=== PATIENT | male | born 1950 | race Caucasian/White ===

== ENCOUNTER 2016-12-31 14:40 | Emergency (ER) | payer MEDICARE, OTHER ==
[2016-12-31] MEDS ORDERED: Sodium Chloride 0.9% 10 ML Syringe FLUSH PRN (15:20)
[2016-12-31] MEDS ORDERED: Acetaminophen 325 MG Tab PO ONE (15:21)
--- NOTE | 2016-12-31 15:22 | EDM.PDOC ---
ED HPI GENERAL MEDICAL PROBLEM - General Chief Complaint: Back Pain or Injury Stated Complaint: BACK PAIN Time Seen by Provider: 12/31/16 15:10 Source of Information: Reports: Patient, RN notes reviewed History Limitations: Reports: No limitations - History of Present Illness INITIAL COMMENTS - FREE TEXT/NARRATIVE: 66 year old male presents to the ED with 3 day history of right back pain. The pain is described as constant, cramping, and severe 10/10. The pain came on suddenly. He denies fall, back injury, or heavy lifting. He was putting his shoes on when the pain started. He says the pain is so severe that it's hard to walk sometimes. The pain does not radiate into groin or down his leg. No hematuria that he's noticed. No history of kidney stones. No history of back problems. He denies abdominal pain, nausea, vomiting, diarrhea, or constipation. He says his abdomen feels bloated but this is not abnormal for him. No fever or chills. He has take excedrin which has offered minimal relief in pain. He drove himself here today and does not have a ride home. He has a history of diabetes and hypertension. 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: Other (see below) Other Treatments INSURANCE SALES SPECIALIST: excedrin at 1200, 1500 mg taken lower back, right hip Pain Score (Numeric/FACES): 10 - Related Data Allergies Allergy/AdvReac Type Severity Reaction Status Date / Time No Known Allergies Allergy Verified 12/31/16 14:57 Home Meds: Home Meds Aspirin 1 tab PO DAILY 07/24/16 [History] Carvedilol 1 tab PO BID 07/24/16 [History] Ferrous Sulfate [Slow Fe] 65 mg PO DAILY 07/24/16 [History] Glimepiride [Amaryl] 4 mg PO DAILY 07/24/16 [History] Hydrochlorothiazide 12.5 mg PO DAILY 07/24/16 [History] Latanoprost 1 drop EYEBOTH DAILY 07/24/16 [History] Lisinopril 40 mg PO DAILY 07/24/16 [History] Spironolactone [Aldactone] 1 tab PO DAILY 07/24/16 [History] Timolol [Betimol] 1 drop EYEBOTH DAILY 07/24/16 [History] amLODIPine [Norvasc] 10 mg PO DAILY 07/24/16 [History] metFORMIN HCl [Metformin HCl] 1 tab PO BID 07/24/16 [History] sitaGLIPtin Phosphate [Januvia] 1 tab PO DAILY 07/24/16 [History] Amoxicillin 500 mg PO ASDIRECTED PRN 12/31/16 [History] Omeprazole 40 mg PO DAILY 12/31/16 [History] Orphenadrine [Norflex] 100 mg PO BID PRN #15 tab.er 12/31/16 [Rx] Past Medical History HEENT History: Reports: Cataract, Glaucoma, Hard of hearing, Impaired vision, Other (see below) Other HEENT History: tinnitus, hearing loss Cardiovascular History: Reports: CAD, Heart Failure, Heart murmur, Heart valve replacement, High cholesterol, Hypertension, [place], SOB on exertion Respiratory History: Reports: None Gastrointestinal History: Reports: None Other Musculoskeletal History: lower leg pain Endocrine/Metabolic History: Reports: Diabetes, type II, Obesity/BMI 30+ - Past Surgical History HEENT Surgical History: Reports: Cataract surgery Cardiovascular Surgical History: Reports: Other (see below) Other Cardiovascular Surgeries/Procedures: mitral valve repair Social & Family History - Family History Family Medical History: Noncontributory - Tobacco Use Smoking Status *Q: Never Smoker Month Tobacco Last Used: 1980 Second Hand Smoke Exposure: No - Caffeine Use Caffeine Use: Reports: Coffee - Recreational Drug Use Recreational Drug Use: No Drug Use in Last 12 Months: No ED ROS GENERAL - Review of Systems Review Of Systems: See Below Constitutional: Reports: no symptoms. Denies: fever, chills, diaphoresis Respiratory: Reports: No Symptoms. Denies: Shortness of Breath Cardiovascular: Reports: No symptoms. Denies: Chest pain GI/Abdominal: Denies: Abdominal pain, Constipation, Diarrhea, Nausea, Vomiting : Reports: flank pain. Denies: dysuria, frequency, hematuria Musculoskeletal: Reports: back pain Neurological: Reports: No Symptoms. Denies: Numbness, Tingling, Weakness ED EXAM, GENERAL - Physical Exam Exam: See Below Exam Limited By: No limitations General Appearance: alert, WD/WN, no apparent distress, anxious Respiratory/Chest: no respiratory distress, lungs clear, normal breath sounds Cardiovascular: normal peripheral pulses, regular rate, rhythm GI/Abdominal: normal bowel sounds, non tender, distended. No: guarding, rebound , tender Back Exam: normal inspection, full range of motion, other (absolutely no musculoskeletal tenderness on exam of the back ). No: CVA tenderness (L), CVA tenderness (R), muscle spasm, paraspinal tenderness, vertebral tenderness Extremities: normal inspection, normal range of motion, non-tender Neurological: alert, oriented, normal cognition, no motor/sensory deficits, other (negative straight leg tests bilaterally) Skin Exam: Warm, Dry, Intact Course - Vital Signs Last Recorded V/S: Last Vital Signs Temp 97.9 F 12/31/16 14:52 Pulse 84 12/31/16 18:15 Resp 16 12/31/16 18:15 BP 145/90 H 12/31/16 18:15 Pulse Ox 97 12/31/16 18:15 - Orders/Labs/Meds Orders: Active Orders 24 hr Category Date Time Status Peripheral IV Care [RC] . DIRECTED Care 12/31/16 15:21 Active Peripheral IV Insertion Adult [OM.PC] Stat Oth 12/31/16 15:21 Ordered Labs: Laboratory Tests 12/31/16 12/31/16 12/31/16 Range/Units 15:30 15:30 18:14 WBC 8.83 (4.23-9.07) K/mm3 RBC 5.15 (4.63-6.08) M/mm3 Hgb 14.5 (13.7-17.5) gm/L Hct 42.8 (40.1-51.0) % MCV 83.1 (79.0-92.2) fl MCH 28.2 (25.7-32.2) pg MCHC 33.9 (32.2-35.5) g/dl RDW Std Deviation 45.8 H (35.1-43.9) fL Plt Count 195 (163-337) K/mm3 MPV 11.1 (9.4-12.3) fl Neut % (Auto) 79.1 H (34.0-67.9) % Lymph % (Auto) 12.2 L (21.8-53.1) % [place] % (Auto) 6.1 (5.3-12.2) % Eos % (Auto) 1.8 (0.8-7.0) Baso % (Auto) 0.3 (0.1-1.2) % Neut # (Auto) 6.98 H (1.78-5.38) K/mm3 Lymph # (Auto) 1.08 L (1.32-3.57) K/mm3 [place] # (Auto) 0.54 (0.30-0.82) K/mm3 Eos # (Auto) 0.16 (0.04-0.54) K/mm3 Baso # (Auto) 0.03 (0.01-0.08) K/mm3 Sodium 134 L (136-145) mEq/L Potassium 4.5 (3.5-5.1) mEq/L Chloride 99 (98-107) mEq/L Carbon Dioxide 21 (21-32) mEq/L Anion Gap 18.5 H (5-15) BUN 22 H (7-18) mg/dL Creatinine 1.3 (0.7-1.3) mg/dL Est Cr Clr Drug Dosing 53.35 mL/min Estimated GFR (MDRD) 55 (>60) mL/min BUN/Creatinine Ratio 16.9 (14-18) Glucose 258 H (80-115) mg/dL Calcium 9.6 (8.5-10.1) mg/dL Total Bilirubin 0.7 (0.2-1.0) mg/dL AST 51 H (15-37) U/L ALT 76 H (16-63) U/L Alkaline Phosphatase 106 (46-116) U/L Total Protein 8.6 H (6.4-8.2) g/dl Albumin 3.8 (3.4-5.0) g/dl Globulin 4.8 gm/dL Albumin/Globulin Ratio 0.8 L (1-2) Urine Color Yellow (Yellow) Urine Appearance Clear (Clear) Urine pH 6.0 (5.0-8.0) Ur Specific [place] 1.015 (1.005-1.030) Urine Protein Negative (Negative) Urine Glucose (UA) Trace H (Negative) Urine Ketones Negative (Negative) Urine Occult Blood Negative (Negative) Urine Nitrite Negative (Negative) Urine Bilirubin Negative (Negative) Urine Urobilinogen 0.2 (0.2-1.0) Ur Leukocyte Esterase Negative (Negative) Urine RBC Not seen (0-5) /hpf Urine WBC Not seen (0-5) /hpf Ur Epithelial Cells Not seen (0-5) /hpf Urine Bacteria Not seen (FEW) /hpf Urine Mucus Not seen (FEW) /hpf Meds: Medications Discontinued Medications Generic Name Dose Route Start Last Admin Trade Name Kamini PRN Reason Stop Dose Admin Acetaminophen 975 mg 12/31/16 15:21 12/31/16 15:47 Tylenol PO 12/31/16 15:22 975 mg NOW ONE Administration Orphenadrine Citrate 100 mg 12/31/16 18:03 12/31/16 18:13 Norflex PO 12/31/16 18:04 100 mg ONETIME ONE Administration Sodium Chloride 10 ml 12/31/16 15:20 12/31/16 15:30 Saline Flush FLUSH 10 ml ASDIRECTED PRN Administration Keep Vein Open - Re-Assessments/Exams Free Text/Narrative Re-Assessment/Exam: The patient is a poor historian. Pain seems to be located to the low back and flank area. The pain is not reproducible with deep palpation over the spine or back. No CVA tenderness. Abdominal exam and back exam unremarkable but patient is c/o 10/10 pain. He does not appear to be in severe distress. He has pain with movement but negative straight leg raises. CT of abdomen/pelvis without contrast for renal stone protocol. CBC reveals a normal WBC. CMP reveals anion gap of 18, BUN 22, creatinine 1.3, glucose 258, AST 51, and ALT 76. UA is negative for hematuria or infection. When discussing labs with the patient, he said his liver enzymes were elevated at his last clinic visit. Dr. Giron is aware of his liver enzymes. CT of abdomen/pelvis read by Dr. Jarvis. No acute findings. No kidney stones. Patient drove himself and does not have a ride home. He was initially treated with Tylenol 975mg PO. He had little relief with this. He was then given Norflex and had good improvement in pain. Acute causes of back pain have been ruled out. Will discharge patient home with prescription for Norflex. Instructed to f/u with Dr. Giron this week. Discharge instructions as documented. Departure - Departure Time of Disposition: 19:08 Disposition: Home, Self-Care 01 Condition: good Clinical Impression: Low back strain Qualifiers: Encounter type: initial encounter Qualified Code(s): S39.012A - Strain of muscle, fascia and tendon of lower back, initial encounter Prescriptions: Orphenadrine [Norflex] 100 mg PO BID PRN #15 tab.er PRN Reason: Pain Instructions: Low Back Strain With Rehab-[facility] Referrals: Rolando Giron MD [Primary Care Provider] - Forms: ED Department Discharge Additional Instructions: Follow-up with Dr. Giron this week for recheck Continue Tylenol or Ibuprofen as needed for pain Norflex(orphanadrine) 100mg every 12 hours as needed for muscle spasm Gentle stretching Heating pad to back Return to ER with worsening of symptoms or additional concerns - My Orders Last 24 Hours: My Active Orders 12/31/16 15:21 Peripheral IV Care [RC] . DIRECTED Peripheral IV Insertion Adult [OM.PC] Stat - Assessment/Plan Last 24 Hours: My Active Orders 12/31/16 15:21 Peripheral IV Care [RC] . DIRECTED Peripheral IV Insertion Adult [OM.PC] Stat
--- NOTE | 2016-12-31 16:19 | CT ---
CT abdomen and pelvis Technique: Multiple axial sections were obtained from above the dome of the diaphragm inferiorly through the pubic symphysis. Intravenous and oral contrast was not utilized. Study has been performed as a ureteral stone protocol. Comparison: No previous abdominal imaging. Findings: Kidneys show no abnormal calcifications. Cyst identified within the left kidney measuring approximate 5.3 cm in size. Right and left ureters show no dilatation. No abnormal calcifications are seen along the course of the ureters. Visualized lung bases shows nothing acute. Fatty infiltration is seen within the liver. Small layering calcified gallstones are seen within the gallbladder. No inflammatory stranding is seen around the gallbladder. Spleen appears within normal limits. Adrenal glands show no nodule. Pancreas appears within normal limits. Aorta shows no aneurysmal dilatation. No retroperitoneal adenopathy or mesenteric abnormalities are seen. Small fat-containing bilateral inguinal hernias are noted. Diverticuli are seen within the descending and sigmoid colon with no inflammatory change seen to indicate diverticulitis. No small bowel dilatation is seen. Bone window settings were reviewed which shows mild scoliosis within the spine with mild scattered degenerative change. Impression: 1. No renal calculi, ureteral dilatation or ureteral stone is seen. 2. Cyst within the left kidney. Fatty infiltration within the liver. Colonic diverticuli. Small calcified layering gallstones. 3. Other incidental findings. No acute abnormality is identified. Diagnostic code #3
[2016-12-31] MEDS ORDERED: Orphenadrine 100 MG Tab.ER PO ONE (18:03)
[2016-12-31 18:17] VITALS: BP 145/90
== END 2016-12-31 19:27 | disposition home or self-care (01) ==
LOC: JD.ED 14:40
DX: S39.012A Strain of muscle, fascia and tendon of lower back, initial encounter (principal); I25.2 Old myocardial infarction; I11.0 Hypertensive heart disease with heart failure; I50.9 Heart failure, unspecified; I25.10 Atherosclerotic heart disease of native coronary artery without angina pectoris; E11.9 Type 2 diabetes mellitus without complications; E66.9 Obesity, unspecified; E78.00 Pure hypercholesterolemia, unspecified; Z68.30 Body mass index [BMI] 30.0-30.9, adult; Z79.82 Long term (current) use of aspirin; Z79.84 Long term (current) use of oral hypoglycemic drugs; Z79.899 Other long term (current) drug therapy; Z98.49 Cataract extraction status, unspecified eye; X58.XXXA Exposure to other specified factors, initial encounter
CPT/HCPCS: 36415; 74176; 80053; 81001; 85025; 99284; A9270; J7050; 99283

== ENCOUNTER → 2017-08-14 | Day surgery (SDC) | payer MEDICARE, OTHER ==
[~2017-08-14] MED LIST: Lactated Ringers 1,000 ML IV SCH; Lidocaine 1% 4 ML ONE; Lidocaine 1%/Sod Bicarbonate in NS 8.4% 1 ML Syringe IV PRN; Propofol 200 MG/20 ML SDV ONE; Sodium Chloride 0.9% 10 ML Syringe FLUSH PRN; fentaNYL 100 MCG/2 ML SDV ONE
--- NOTE | 2017-08-14 12:52 | OR ---
DATE OF OPERATION: 08/14/2017 SURGEON: Kurtis Mercado MD PROCEDURE: Esophagogastroduodenoscopy. INDICATION: This is a 66-year-old patient needs an EGD. He did have a positive FIT test done a year ago. He did have a colonoscopy showing a few polyps and an EGD that was done by Dr. Solares showing some duodenal ulcers. He has been on omeprazole 40 mg b.i.d. now for a year. He really denies any GERD-type symptoms. He denies abdominal pain. He has had no previous abdominal surgery. He has had an annuloplasty of his mitral valve. PROCEDURE IN DETAIL: The patient is brought to the endoscopy area. Procedure is done with MAC anesthesia. Consent is obtained and appropriate time out is instituted. The patient is turned in the left lateral decubitus position and after appropriate MAC sedation, the scope was advanced easily through the cricopharyngeus. Vocal cords looked normal. His esophagus basically looks normal. The Z-line is at 40 cm. He does have LA Grade B esophagitis. I do not see a hiatal hernia on today's exam. Scope was advanced through the hiatus into the stomach. He has a mild amount of bile in the stomach. On retroflexion, I do not see a hiatal hernia. He has mild linear gastritis. I did not do any biopsies for H. pylori as they have been done. Scope was advanced through the pylorus. I do not see any duodenal ulcers. He does have somewhat prominent Kit gland hyperplasia in the duodenum which is a normal finding. Scope was advanced to the third portion of the duodenum and I do not appreciate any abnormalities. We bring the scope carefully through the duodenum again and no other abnormalities are seen. There is nothing to suggest ulcerations here. We come back into the stomach and on retroflexion, we take a good look at things which are normal. The Z-line is photographed. The scope is then removed. He tolerates the procedure very well. ESTIMATED BLOOD LOSS: From the procedure is zero. COMPLICATIONS: None. We seen him postprocedure and he is awake and the findings are discussed with him. We probably need to see him back in 2 weeks and we will discuss whether he needs to be on omeprazole for the above findings. In view of the positive Hemoccult, I think a maintenance dose of omeprazole 20 mg a day may be reasonable. MMODAL /[id number]
--- NOTE | 2017-08-14 16:38 | PCM.PREANE ---
Preanesthetic Assessment - Anesthesia/Transfusion/Family Hx Anesthesia History: Prior Anesthesia Without Reaction Family History of Anesthesia Reaction: No Transfusion History: No Prior Transfusion(s) Intubation History: Unknown - Review of Systems General: No Symptoms Pulmonary: No Symptoms (quit smoking in 1980) Cardiovascular: No Symptoms (2001 Mitral valve repair with PA noted afterwards./ CHF, HTN) Gastrointestinal: No Symptoms (History of gastritis/GERD) Neurological: No Symptoms Other: Reports: None, Diabetes (am blood sugar at home = 123/ hospital reading= 160) - Physical Assessment NPO Status Date: 08/13/17 NPO Status Time: 17:00 Pulse: 71 O2 Sat by Pulse Oximetry: 97 Respiratory Rate: 16 Blood Pressure: 145/77 Temperature: 36.6 C Height: 1.73 m Weight: 98 kg ASA Class: 3 Mental Status: Alert & Oriented x3 Airway Class: Mallampati = 2 Dentition: Reports: Normal Dentition, Caries Thyro-Mental Finger Breadths: 3 Mouth Opening Finger Breadths: 3 ROM/Head Extension: Full Lungs: Clear to Auscultation, Normal Respiratory Effort Cardiovascular: Regular Rate, Regular Rhythm, No Murmurs - Imaging/EKG Impressions: Stress test 2016: negative Echo 2016: EF= 45-50% EKG: SR with LBBB and ventricular bigeminy - Allergies Allergies/Adverse Reactions: Allergies Allergy/AdvReac Type Severity Reaction Status Date / Time No Known Allergies Allergy Verified 08/13/17 13:24 - Anesthesia Plan Pre-Op Medication Ordered: Beta Anastasiya Beta Anastasiya: Carvedilol Med Last Dose Date: 08/14/17 Med Last Dose Time: 05:30 - Acknowledgements Anesthesia Type Planned: MAC Pt an Appropriate Candidate for the Planned Anesthesia: Yes Alternatives and Risks of Anesthesia Discussed w Pt/Guardian: Yes Pt/Guardian Understands and Agrees with Anesthesia Plan: Yes PreAnesthesia Questionnaire HEENT History: Reports: Cataract, Glaucoma, Hard of Hearing, Impaired Vision, Other (See Below) Other HEENT History: tinnitus, hearing loss, wears glassses Cardiovascular History: Reports: CAD, Heart Failure, Heart Murmur, Heart Valve Replacement, High Cholesterol, Hypertension, [place], SOB on Exertion Respiratory History: Reports: None Gastrointestinal History: Reports: None, Colon Polyp, Gastritis, Other (See Below) Other Gastrointestinal History: duodenitits, duodenal ulcer Genitourinary History: Reports: None BUCKLE SEWER History: Reports: None Other Musculoskeletal History: lower leg pain Neurological History: Reports: None Psychiatric History: Reports: None Endocrine/Metabolic History: Reports: Diabetes, Type II, Obesity/BMI 30+ Hematologic History: Reports: None Immunologic History: Reports: None Oncologic (Cancer) History: Reports: None Dermatologic History: Reports: None - Past Surgical History Head Surgeries/Procedures: Reports: None HEENT Surgical History: Reports: Cataract Surgery Cardiovascular Surgical History: Reports: Other (See Below) Other Cardiovascular Surgeries/Procedures: mitral valve repair Respiratory Surgical History: Reports: None GI Surgical History: Reports: Colonoscopy, EGD Female Surgical History: Reports: None Male Surgical History: Reports: None Endocrine Surgical History: Reports: None Neurological Surgical History: Reports: None Musculoskeletal Surgical History: Reports: None Oncologic Surgical History: Reports: None - SUBSTANCE USE Smoking Status *Q: Former Smoker Tobacco Use Within Last Twelve Months: No Second Hand Smoke Exposure: No Recreational Drug Use History: No - HOME MEDS Home Medications: Home Meds Aspirin 1 tab PO DAILY 07/24/16 [History] Carvedilol 12.5 mg PO BID 07/24/16 [History] Ferrous Sulfate [Slow Fe] 140 mg PO DAILY 07/24/16 [History] Glimepiride [Amaryl] 4 mg PO DAILY 07/24/16 [History] Hydrochlorothiazide 12.5 mg PO DAILY 07/24/16 [History] Latanoprost 1 drop EYEBOTH BEDTIME 07/24/16 [History] Lisinopril 40 mg PO DAILY 07/24/16 [History] Spironolactone [Aldactone] 25 mg PO DAILY 07/24/16 [History] Timolol [Betimol] 1 drop EYEBOTH DAILY 07/24/16 [History] amLODIPine [Norvasc] 10 mg PO DAILY 07/24/16 [History] metFORMIN HCl [Metformin HCl] 1,000 mg PO BID 07/24/16 [History] Amoxicillin 500 mg PO ASDIRECTED PRN 12/31/16 [History] Fish Oil/[place]-3 Fatty Acids [Fish Oil 1,000 MG] 1 gm PO DAILY 08/13/17 [History ] Gluc 2KCl/Chondr/Erasmo Hy/Hy Ac [Glucosamine & Chondroitin Cap] 1 cap PO DAILY [History] Methylcellulose [Citrucel] 500 mg PO DAILY 08/13/17 [History] Multivitamin [Poly-Vitamin] 1 tab PO DAILY 08/13/17 [History] Omeprazole 40 mg PO DAILY 08/13/17 [History] Simvastatin [Zocor] 5 mg PO BEDTIME 08/13/17 [History] Vit A/Vit C/Vit E/Zinc/Copper [Preservision Areds Softgel] 1 cap PO DAILY [History] - CURRENT (IN HOUSE) MEDS Current Meds: Current Medications Lactated Ringer's (Ringers, Lactated) 1,000 mls @ 125 mls/hr IV ASDIRECTED EDGAR Last Admin: 08/14/17 07:15 Dose: 125 mls/hr Lidocaine/Sodium Bicarbonate (Buffered Lidocaine 1% In Ns 8.4%) 0.25 ml IV ONETIME PRN PRN Reason: Prior to IV Start Last Admin: 08/14/17 07:15 Dose: 0.25 ml Sodium Chloride (Saline Flush) 10 ml FLUSH ASDIRECTED PRN PRN Reason: Keep Vein Open
--- NOTE | 2017-08-14 16:38 | PCM48HPAN ---
Post Anesthesia Note - EVALUATION WITHIN 48HRS OF ANESTHETIC Vital Signs in Normal Range: Yes Patient Participated in Evaluation: Yes Respiratory Function Stable: Yes Airway Patent: Yes Cardiovascular Function Stable: Yes Hydration Status Stable: Yes Pain Control Satisfactory: Yes Nausea and Vomiting Control Satisfactory: Yes Mental Status Recovered: Yes
[2017-08-14 16:55] VITALS: BP 137/73
== END ==
LOC: JD.SDS 06:45
PROVIDERS: ATTEND Surgery
DX: K29.70 Gastritis, unspecified, without bleeding (principal); K21.0 Gastro-esophageal reflux disease with esophagitis; I10 Essential (primary) hypertension; E11.9 Type 2 diabetes mellitus without complications; E78.2 Mixed hyperlipidemia; Z87.891 Personal history of nicotine dependence; Z79.84 Long term (current) use of oral hypoglycemic drugs; Z79.82 Long term (current) use of aspirin; Z79.899 Other long term (current) drug therapy; Z79.2 Long term (current) use of antibiotics
CPT/HCPCS: 43235; 82962; J3010; J7120; 00740; J2704

== ENCOUNTER 2019-05-13 15:21 | Emergency (ER) | payer OTHER, MEDICARE ==
[2019-05-13 15:47] VITALS: BP 145/99; PULSE 114
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
--- NOTE | 2019-05-14 07:50 | CR ---
Chest: Two views of the chest are obtained. Comparison: No prior chest x-ray. Heart size appears within normal limits. Previous sternotomy is seen. Lungs are clear with no acute parenchymal change. Diffuse degenerative endplate spurring is noted within the spine. Prosthetic mitral valve is noted. Impression: 1. Findings as noted above. Nothing acute is seen. Diagnostic code #2
== END 2019-05-13 16:51 | disposition home or self-care (01) ==
LOC: JD.ED 15:21
DX: S20.211A Contusion of right front wall of thorax, initial encounter (principal); I11.0 Hypertensive heart disease with heart failure; I50.9 Heart failure, unspecified; E11.9 Type 2 diabetes mellitus without complications; I25.10 Atherosclerotic heart disease of native coronary artery without angina pectoris; I25.2 Old myocardial infarction; E78.00 Pure hypercholesterolemia, unspecified; E66.9 Obesity, unspecified; Z68.32 Body mass index [BMI] 32.0-32.9, adult; Z87.891 Personal history of nicotine dependence; Z79.82 Long term (current) use of aspirin; Z79.899 Other long term (current) drug therapy; Z79.84 Long term (current) use of oral hypoglycemic drugs; V53.5XXA Driver of pick-up truck or van injured in collision with car, pick-up truck or van in traffic accident, initial encounter
CPT/HCPCS: 71046; 71046-26; 99282; 99284-25